=== PATIENT | female | born 1985 | race Caucasian/White ===

== ENCOUNTER 2020-12-26 19:44 | Emergency (ER) | payer BC ==
[2020-12-26] MEDS ORDERED: Sodium Chloride 0.9% 1,000 ML IV ONE (20:24)
[2020-12-26] MEDS ORDERED: methylPREDNISolone Sodium Succinate 125 MG/2 ML SDV IVPUSH ONE (20:33)
[2020-12-26] MEDS ORDERED: methylPREDNISolone Sodium Succinate 125 MG/2 ML SDV ONE (20:34)
--- NOTE | 2020-12-26 20:38 | EDM.PDOC ---
<Tim Henry - Last Filed: 12/26/20 22:50> ED HPI GENERAL MEDICAL PROBLEM - General Chief Complaint: Respiratory Problem Stated Complaint: DIFFICULTY BREATHING Time Seen by Provider: 12/26/20 19:54 - History of Present Illness INITIAL COMMENTS - FREE TEXT/NARRATIVE: 10:50 PM: Patient was reevaluated by me. Patient reports that she does feel much better after receiving the neb treatment here in the ED. Patient's Covid test is negative. Patient's lactic acid level is less than 2. Patient's D- dimer test is negative. Patient's chest x-ray does show a small pneumonia in the right lower lobe which we will start her on Zithromax for work. Patient also get started on outpatient prednisone and will be instructed to follow-up with her doctor in the next 2 to 3 days. Patient reports that she does have a albuterol MDI in her purse and does not need a prescription for that. Patient is ambulating in the ED with stable gait and without any further shortness of breath. Patient's pulse ox is 95% on room air. Reassessment at the time of disposition demonstrates that the patient is in no acute distress. The patient has remained stable throughout the entire ED visit and is without objective evidence for acute process requiring urgent intervention or hospitalization. The patient is stable for discharge, counseling is provided as documented above, discussed symptomatic treatment and specific c onditions for return. I have spoken with the patient/caregiver and discussed todays findings, in addition to providing specific details for the plan of care. Questions are answered and there is agreement with the plan. - Related Data Allergies Allergy/AdvReac Type Severity Reaction Status Date / Time No Known Allergies Allergy Verified 12/26/20 19:59 Home Meds: Home Meds oxyCODONE HCl/Acetaminophen [Percocet 5-325 mg Tablet] 08/20/14 [History] Albuterol Sulfate [Proair Hfa] 8.5 gm IH Q4HR PRN #1 [id number].[id number].[id number] 03/11/17 [Rx] Levothyroxine [Synthroid] 100 mcg PO ACBREAKFAST 03/11/17 [History] Pnv No.95/Ferrous Fum/Folic AC [ Vitamins Tablet] 1 tab PO DAILY 10/19/17 [History] valACYclovir HCl [Valtrex] 500 mg PO DAILY 03/16/18 [History] Azithromycin [Zithromax] 250 mg PO DAILY #4 tablet 12/26/20 [Rx] predniSONE [Prednisone] 50 mg PO DAILY #5 tablet 12/26/20 [Rx] ED ROS GENERAL - Review of Systems Review Of Systems: See Below ED EXAM, GENERAL - Physical Exam Exam: See Below Departure - Departure Time of Disposition: 22:51 Disposition: Home, Self-Care 01 Condition: Good Clinical Impression: Pneumonia Qualifiers: Pneumonia type: due to unspecified organism Laterality: right Lung location: lower lobe of lung Qualified Code(s): J18.9 - Pneumonia, unspecified organism - Discharge Information Prescriptions: predniSONE [Prednisone] 50 mg PO DAILY #5 tablet Azithromycin [Zithromax] 250 mg PO DAILY #4 tablet Instructions: Asthma, Adult, Shortness of Breath, Adult, [id number], Community-Acquired Pneumonia, Adult Referrals: Erum Escobedo CAREER PLACEMENT SPECIALIST [Primary Care Provider] - Forms: ED Department Discharge Additional Instructions: You were seen and evaluated in the ER today secondary to signs and symptoms consistent with pneumonia. Your Covid test was negative. The test that we use to detect blood clots in your lungs were also negative. Your sepsis test was negative as well. Your chest x-ray did show that you have a early pneumonia in the right side of your lung which we will start you on some antibiotics. You will also be given a prescription for prednisone to take to help the inflammation in your lungs from the pneumonia. Please make an appointment to see your doctor in the next 2 to 3 days for reevaluation. The following information is given to patients seen in the emergency department who are being discharged to home. This information is to outline your options for follow-up care. We provide all patients seen in our emergency department with a follow-up referral. The need for follow-up, as well as the timing and circumstances, are variable depending upon the specifics of your emergency department visit. If you don't have a primary care physician on staff, we will provide you with a referral. We always advise you to contact your personal physician following an emergency department visit to inform them of the circumstance of the visit and for follow-up with them and/or the need for any referrals to a consulting specialist. The emergency department will also refer you to a specialist when appropriate. This referral assures that you have the opportunity for follow-up care with a specialist. All of these measure are taken in an effort to provide you with optimal care, which includes your follow-up. Under all circumstances we always encourage you to contact your private physician who remains a resource for coordinating your care. When calling for follow-up care, please make the office aware that this follow-up is from your recent emergency room visit. If for any reason you are refused follow-up, please contact the [facility] Emergency Department at and asked to speak to the emergency department charge nurse. [facility] - Primary [facility] [address] [place] [id number] [address] [address] <Agueda Ji E - Last Filed: 12/28/20 10:10> ED HPI GENERAL MEDICAL PROBLEM - General Source of Information: Reports: Patient History Limitations: Reports: No Limitations - History of Present Illness INITIAL COMMENTS - FREE TEXT/NARRATIVE: HISTORY AND PHYSICAL: History of present illness: Patient is a 35-year-old female who presents to the emergency room with complaints of shortness of breath, cough, fever and body aches. She states over the past few days she has had a runny nose with green mucus. Her daughter has had similar symptoms including cough. This morning she had woke up with a productive cough and temperature of 99-100F. She states she is increasingly feeling unwell, tried using her inhaler without relief. She has had mild nausea, generalized backache with bilateral flank pain. Patient states she does have a history of asthma and recurrent bronchitis. Patient denies any headache, change in vision, syncope or near syncope. Denies any chest pain, hemoptysis, abdominal pain, vomiting, diarrhea, constipation or dysuria. Has not noted any blood in urine or stool. She states she has an IUD and no concern for . She had previously been eating and drinking appropriately. Review of systems: As per history of present illness and below otherwise all systems reviewed and negative. Past medical history: As per history of present illness and as reviewed below otherwise noncontributory. Surgical history: As per history of present illness and as reviewed below otherwise noncontributory. Social history: See social history for further information Family history: As per history of present illness and as reviewed below otherwise noncontributory. Physical exam: General: Well developed and well nourished 35-year-old female. Alert and orientated x 3. Nontoxic in appearance and in no acute distress. Vital signs are stable and have been reviewed by me. Nursing notes were reviewed. HEENT: Atraumatic, normocephalic, pupils equal and reactive bilaterally, negative for conjunctival pallor or scleral icterus, mucous membranes moist, TMs normal bilaterally, throat clear, neck supple, nontender, trachea midline. No drooling or trismus noted. No meningeal signs. No hot potato voice noted. Lungs: Poor air exchange with fine expiratory wheezing bilaterally. No wheezes, rales, or rhonchi. Chest nontender. Normal work of breathing, no accessory muscles used. Loose productive cough noted. Heart: S1S2, tachycardia with regular rhythm without overt murmur, gallops, or rubs. No JVD. No peripheral edema Abdomen: Soft, nondistended, nontender. Normoactive bowel sounds. Negative for masses or costovertebral tenderness. Skin: Skin warm to touch with flushed cheeks. Intact, warm, dry. No lesions or rashes noted. Hematologic: No petechiae or purpra. Mucosa appropriate color and normal nail bed color and refill. Extremities: Atraumatic, moves all extremities per self without difficulty or deficits, negative for cords or calf pain. Neurovascular unremarkable. Neuro: Awake, alert, oriented. Cranial nerves II through XII unremarkable. Cerebellum unremarkable. Motor and sensory unremarkable throughout. Exam nonfocal. Psychiatric: Mood and affect are appropriate. Normal thought process. Answering questions appropriately. Notes: *This patient was seen and evaluated during the 2019 SARS-CoV-2 novel coronavirus pandemic period. Community viral transmission is ongoing at time of this encounter and the emergency department is operating under pandemic response procedures. Patient does have a slight leukocytosis. Chest x-ray shows mild patchy right infrahilar infiltrate, atelectasis versus pneumonia. Few labs still pending. Dr Henry will follow up on this, assume care, and disposition patient appropriately. Diagnostics: CBC, CMP, UA, urine , D-dimer, EKG, chest x-ray, COVID-19 Therapeutics: IV fluid, Solu-Medrol Definitive disposition and diagnosis as appropriate pending reevaluation and review of above. lower back Pain Score (Numeric/FACES): 7 Past Medical History - Past Health History Medical/Surgical History: Denies Medical/Surgical History HEENT History: Reports: None Other HEENT History: glasses Cardiovascular History: Reports: None Respiratory History: Reports: Asthma, Bronchitis, Recurrent Other Respiratory History: early onset of COPD Gastrointestinal History: Reports: GERD, Other (See Below) Other Gastrointestinal History: Reflux in the past Genitourinary History: Reports: None, Retention, Urinary, STD BUSINESS OBJECTS DEVELOPER History: Reports: Other (See Below), Polycystic Ovaries, Other BUSINESS OBJECTS DEVELOPER History: IUFD, cerclage 2018. Musculoskeletal History: Reports: Back Pain, Chronic, Fracture Other Musculoskeletal History: hx fx wrist Neurological History: Reports: Migraines Psychiatric History: Reports: Anxiety, Depression Endocrine/Metabolic History: Reports: Hypothyroidism, Obesity/BMI 30+ Hematologic History: Reports: None Immunologic History: Reports: None Oncologic (Cancer) History: Reports: None Dermatologic History: Reports: Other (See Below) Other Dermatologic History: Inflamed sebaceous cyst. - Infectious Disease History Infectious Disease History: Reports: Herpes, Human Papilloma Virus (HPV), Other (See Below) Other Infectious Disease History: Genital herpes. - Past Surgical History Head Surgeries/Procedures: Reports: None HEENT Surgical History: Reports: Oral Surgery Female Surgical History: Reports: Breast Biopsy Musculoskeletal Surgical History: Reports: Shoulder Surgery Social & Family History - Family History Family Medical History: No Pertinent Family History - Caffeine Use Caffeine Use: Reports: None - Recreational Drug Use Recreational Drug Use: No ED ROS GENERAL - Review of Systems Review Of Systems: Comprehensive ROS is negative, except as noted in HPI. Course - Vital Signs Last Recorded V/S: Last Vital Signs Temp 99.9 F 12/26/20 20:00 Pulse 106 H 12/26/20 21:48 Resp 20 12/26/20 21:48 BP 136/90 12/26/20 21:48 Pulse Ox 98 12/26/20 21:48 - Orders/Labs/Meds Labs: Laboratory Tests 12/26/20 12/26/20 12/26/20 Range/Units 20:16 20:22 20:22 WBC 11.12 H (4.0-11.0) K/uL RBC 4.15 L (4.30-5.90) M/uL Hgb 13.0 (12.0-16.0) g/dL Hct 38.0 (36.0-46.0) % MCV 91.6 (80.0-98.0) fL MCH 31.3 (27.0-32.0) pg MCHC 34.2 (31.0-37.0) g/dL RDW Std Deviation 43.5 (28.0-62.0) fl RDW Coeff of Delia 13 (11.0-15.0) % Plt Count 338 (150-400) K/uL MPV 10.20 (7.40-12.00) fL Neut % (Auto) 68.7 (48.0-80.0) % Lymph % (Auto) 20.9 (16.0-40.0) % Grady % (Auto) 6.9 (0.0-15.0) % Eos % (Auto) 3.1 (0.0-7.0) % Baso % (Auto) 0.4 (0.0-1.5) % Neut # (Auto) 7.6 H (1.4-5.7) K/uL Lymph # (Auto) 2.3 (0.6-2.4) K/uL Grady # (Auto) 0.8 (0.0-0.8) K/uL Eos # (Auto) 0.4 (0.0-0.7) K/uL Baso # (Auto) 0.0 (0.0-0.1) K/uL Nucleated RBC % 0.0 /100WBC Nucleated RBCs # 0 K/uL D-Dimer, Quantitative (0.0-0.50) mg/L FEU Sodium 140 (136-145) mmol/L Potassium 4.2 (3.5-5.1) mmol/L Chloride 103 (98-107) mmol/L Carbon Dioxide 29.0 (21.0-32.0) mmol/L BUN 9 (7.0-18.0) mg/dL Creatinine 1.1 H (0.6-1.0) mg/dL Est Cr Clr Drug Dosing 68.10 mL/min Estimated GFR (MDRD) 57.2 ml/min Glucose 119 H (74-106) mg/dL Lactic Acid (0.4-2.0) mmol/L Calcium 9.3 (8.5-10.1) mg/dL Total Bilirubin 0.3 (0.2-1.0) mg/dL AST 24 (15-37) IU/L ALT 39 (14-63) IU/L Alkaline Phosphatase 88 (46-116) U/L Troponin I (0.000-0.056) ng/mL Total Protein 8.0 (6.4-8.2) g/dL Albumin 3.8 (3.4-5.0) g/dL Globulin 4.2 H (2.6-4.0) g/dL Albumin/Globulin Ratio 0.9 (0.9-1.6) Urine Color Urine Appearance Urine pH (5.0-8.0) Ur Specific [place] (1.001-1.035) Urine Protein (NEGATIVE) mg/dL Urine Glucose (UA) (NEGATIVE) mg/dL Urine Ketones (NEGATIVE) mg/dL Urine Occult Blood (NEGATIVE) Urine Nitrite (NEGATIVE) Urine Bilirubin (NEGATIVE) Urine Urobilinogen (<2.0) EU/dL Ur Leukocyte Esterase (NEGATIVE) Urine RBC (0-2/HPF) Urine WBC (0-5/HPF) Ur Epithelial Cells (NONE-FEW) Urine Bacteria (NEGATIVE) Urine HCG, Qual (NEGATIVE) SARS-CoV-2 RNA (REJI) NEGATIVE (NEGATIVE) 12/26/20 12/26/20 12/26/20 Range/Units 20:22 20:22 20:32 WBC (4.0-11.0) K/uL RBC (4.30-5.90) M/uL Hgb (12.0-16.0) g/dL Hct (36.0-46.0) % MCV (80.0-98.0) fL MCH (27.0-32.0) pg MCHC (31.0-37.0) g/dL RDW Std Deviation (28.0-62.0) fl RDW Coeff of Delia (11.0-15.0) % Plt Count (150-400) K/uL MPV (7.40-12.00) fL Neut % (Auto) (48.0-80.0) % Lymph % (Auto) (16.0-40.0) % Grady % (Auto) (0.0-15.0) % Eos % (Auto) (0.0-7.0) % Baso % (Auto) (0.0-1.5) % Neut # (Auto) (1.4-5.7) K/uL Lymph # (Auto) (0.6-2.4) K/uL Grady # (Auto) (0.0-0.8) K/uL Eos # (Auto) (0.0-0.7) K/uL Baso # (Auto) (0.0-0.1) K/uL Nucleated RBC % /100WBC Nucleated RBCs # K/uL D-Dimer, Quantitative 0.27 (0.0-0.50) mg/L FEU Sodium (136-145) mmol/L Potassium (3.5-5.1) mmol/L Chloride (98-107) mmol/L Carbon Dioxide (21.0-32.0) mmol/L BUN (7.0-18.0) mg/dL Creatinine (0.6-1.0) mg/dL Est Cr Clr Drug Dosing mL/min Estimated GFR (MDRD) ml/min Glucose (74-106) mg/dL Lactic Acid 1.2 (0.4-2.0) mmol/L Calcium (8.5-10.1) mg/dL Total Bilirubin (0.2-1.0) mg/dL AST (15-37) IU/L ALT (14-63) IU/L Alkaline Phosphatase (46-116) U/L Troponin I < 0.050 (0.000-0.056) ng/mL Total Protein (6.4-8.2) g/dL Albumin (3.4-5.0) g/dL Globulin (2.6-4.0) g/dL Albumin/Globulin Ratio (0.9-1.6) Urine Color Urine Appearance Urine pH (5.0-8.0) Ur Specific [place] (1.001-1.035) Urine Protein (NEGATIVE) mg/dL Urine Glucose (UA) (NEGATIVE) mg/dL Urine Ketones (NEGATIVE) mg/dL Urine Occult Blood (NEGATIVE) Urine Nitrite (NEGATIVE) Urine Bilirubin (NEGATIVE) Urine Urobilinogen (<2.0) EU/dL Ur Leukocyte Esterase (NEGATIVE) Urine RBC (0-2/HPF) Urine WBC (0-5/HPF) Ur Epithelial Cells (NONE-FEW) Urine Bacteria (NEGATIVE) Urine HCG, Qual (NEGATIVE) SARS-CoV-2 RNA (REJI) (NEGATIVE) 12/26/20 12/26/20 Range/Units 21:40 21:40 WBC (4.0-11.0) K/uL RBC (4.30-5.90) M/uL Hgb (12.0-16.0) g/dL Hct (36.0-46.0) % MCV (80.0-98.0) fL MCH (27.0-32.0) pg MCHC (31.0-37.0) g/dL RDW Std Deviation (28.0-62.0) fl RDW Coeff of Delia (11.0-15.0) % Plt Count (150-400) K/uL MPV (7.40-12.00) fL Neut % (Auto) (48.0-80.0) % Lymph % (Auto) (16.0-40.0) % Grady % (Auto) (0.0-15.0) % Eos % (Auto) (0.0-7.0) % Baso % (Auto) (0.0-1.5) % Neut # (Auto) (1.4-5.7) K/uL Lymph # (Auto) (0.6-2.4) K/uL Grady # (Auto) (0.0-0.8) K/uL Eos # (Auto) (0.0-0.7) K/uL Baso # (Auto) (0.0-0.1) K/uL Nucleated RBC % /100WBC Nucleated RBCs # K/uL D-Dimer, Quantitative (0.0-0.50) mg/L FEU Sodium (136-145) mmol/L Potassium (3.5-5.1) mmol/L Chloride (98-107) mmol/L Carbon Dioxide (21.0-32.0) mmol/L BUN (7.0-18.0) mg/dL Creatinine (0.6-1.0) mg/dL Est Cr Clr Drug Dosing mL/min Estimated GFR (MDRD) ml/min Glucose (74-106) mg/dL Lactic Acid (0.4-2.0) mmol/L Calcium (8.5-10.1) mg/dL Total Bilirubin (0.2-1.0) mg/dL AST (15-37) IU/L ALT (14-63) IU/L Alkaline Phosphatase (46-116) U/L Troponin I (0.000-0.056) ng/mL Total Protein (6.4-8.2) g/dL Albumin (3.4-5.0) g/dL Globulin (2.6-4.0) g/dL Albumin/Globulin Ratio (0.9-1.6) Urine Color YELLOW Urine Appearance CLEAR Urine pH 7.5 (5.0-8.0) Ur Specific [place] 1.015 (1.001-1.035) Urine Protein NEGATIVE (NEGATIVE) mg/dL Urine Glucose (UA) NEGATIVE (NEGATIVE) mg/dL Urine Ketones NEGATIVE (NEGATIVE) mg/dL Urine Occult Blood TRACE-INTACT H (NEGATIVE) Urine Nitrite NEGATIVE (NEGATIVE) Urine Bilirubin NEGATIVE (NEGATIVE) Urine Urobilinogen 0.2 (<2.0) EU/dL Ur Leukocyte Esterase NEGATIVE (NEGATIVE) Urine RBC 0-2 (0-2/HPF) Urine WBC 0-1 (0-5/HPF) Ur Epithelial Cells FEW (NONE-FEW) Urine Bacteria FEW (NEGATIVE) Urine HCG, Qual NEGATIVE (NEGATIVE) SARS-CoV-2 RNA (REJI) (NEGATIVE) Meds: Medications Discontinued Medications Generic Name Dose Route Start Last Admin Trade Name Freq PRN Reason Stop Dose Admin Albuterol/Ipratropium 3 ml 12/26/20 22:39 12/26/20 22:47 Albuterol/Ipratropium 3.0-0.5 Mg/3 Ml Neb Soln NEB 12/26/20 22:40 3 ml ONETIME ONE Administration Azithromycin 500 mg 12/26/20 22:54 Azithromycin 250 Mg Tab PO 12/26/20 22:55 Q24H ONE Sodium Chloride 1,000 mls @ 999 mls/hr 12/26/20 20:24 12/26/20 20:37 Normal Saline IV 12/26/20 21:24 999 mls/hr STAT ONE Administration Methylprednisolone Sodium Succinate 125 mg 12/26/20 20:33 12/26/20 20:38 Methylprednisolone Sodium Succinate 125 Mg/2 Ml Sdv IVPUSH 12/26/20 20:34 125 mg ONETIME ONE Administration Methylprednisolone Sodium Succinate Confirm 12/26/20 20:34 12/26/20 20:35 Methylprednisolone Sodium Succinate 125 Mg/2 Ml Sdv Administered 12/26/20 20:35 Not Given Dose 125 mg .ROUTE .STK-MED ONE Sepsis Event Note (ED) - Evaluation Sepsis Screening Result: No Definite Risk
[2020-12-26 20:48] LABS: POTASSIUM,K 4.2 mmol/L (3.5-5.1)
--- NOTE | 2020-12-26 20:51 | CR ---
HISTORY: Shortness of breath. COMPARISON: None available FINDINGS: A portable erect AP view of the chest was obtained at 20 24 hours. There is mild patchy right infrahilar infiltrate. This could be atelectasis or pneumonia. The rest of the chest is clear. The heart is normal in size. The mediastinum is normal in appearance. There are changes of resection of the right distal clavicle with prominent inferior subluxation of the acromion. A metallic strap is seen along the superior distal right clavicle. IMPRESSION: Mild patchy right infrahilar infiltrate, atelectasis versus pneumonia. Dictated by Kurtis Bradley MD @ 12/26/2020 8:51:[address] Kurtis Bradley @ Dec 26 2020 8:51PM
--- NOTE | 2020-12-26 21:21 | PCM.EKG ---
#1 Interpretation EKG Interpretation Comments: EKG: As interpreted by ER physician: Elaine: Nonspecific ST-T wave abnormalities Normal axis No evidence of ST elevation SD Normal sinus rhythm heart rate of 95
[2020-12-26 21:50] VITALS: BP 136/90; PULSE 106
[2020-12-26] MEDS ORDERED: Albuterol/Ipratropium 3.0-0.5 MG/3 ML Neb Soln NEB ONE (22:39)
[2020-12-26] MEDS ORDERED: Azithromycin 250 MG Tab PO ONE (22:54)
== END 2020-12-26 23:00 | disposition home or self-care (01) ==
LOC: MW.ED 19:44
DX: J18.9 Pneumonia, unspecified organism (principal); Z20.822 Contact with and (suspected) exposure to COVID-19
CPT/HCPCS: 36415; 71045; 80053; 81001; 81025; 83605; 84484; 85025; 85379; 87040; 87635; 93005; 96374; 99285; J2930; J7030; J7620-GY; U0002

== ENCOUNTER 2022-01-14 02:25 | Emergency (ER) | payer BC ==
[2022-01-14] MEDS ORDERED: Dexamethasone 10 MG/ML SDV IM STA (02:40)
[2022-01-14 03:06] VITALS: BP 137/81; PULSE 92
== END 2022-01-14 03:07 | disposition home or self-care (01) ==
LOC: MW.ED 02:25
DX: H66.92 Otitis media, unspecified, left ear (principal); J44.9 Chronic obstructive pulmonary disease, unspecified; K21.9 Gastro-esophageal reflux disease without esophagitis; E03.9 Hypothyroidism, unspecified; E66.9 Obesity, unspecified; Z68.42 Body mass index [BMI] 45.0-49.9, adult
CPT/HCPCS: 96372; 99282; J1100

== ENCOUNTER 2024-01-19 15:01 | Emergency (ER) | payer BC ==
[2024-01-19] MEDS: Acetaminophen 500 MG Tab PO ONE (15:51)
[2024-01-19] MEDS: Sodium Chloride 0.9% 1,000 ML IV ONE ×2 (15:51→17:20)
[2024-01-19] MEDS: Ketorolac 30 MG/ML SDV IVPUSH ONE (15:52)
[2024-01-19] MEDS: Sodium Chloride 0.9% 10 ML Syringe FLUSH PRN (15:52)
[2024-01-19] MEDS: Metoclopramide 10 MG/2 ML SDV IVPUSH ONE (15:52)
[2024-01-19] MEDS: Sodium Chloride 0.9% 2.5 ML Syringe FLUSH PRN (15:52)
[2024-01-19] MEDS: diphenhydrAMINE 50 MG/ML SDV IVPUSH ONE (15:52)
[2024-01-19 15:56] LABS: BASOPHILS ABSOLUTE AUTO 0.04 K/uL (0.00-0.20); BASOPHILS PERCENT AUTO 0.3 % (0.0-1.0); HEMATOCRIT 36.3 % (37.0-47.0); HEMOGLOBIN 12.9 g/dL (12.0-16.0); IMMATURE GRAN ABSOLUTE AUTO 0.06 K/uL (0.00-0.05); IMMATURE GRAN PERCENT AUTO 0.5 % (0.0-0.4); LYMPHOCYTES ABSOLUTE AUTO 0.72 K/uL (1.00-4.80); LYMPHOCYTES PERCENT AUTO 5.6 % (24.0-44.0); MEAN CORPUSCULAR HEMOGLOBIN 31.2 pg (28.0-32.0); MEAN CORPUSCULAR HGB CONC 35.5 g/dL (32.0-36.0); MEAN CORPUSCULAR VOLUME 87.7 fL (83.0-99.0); MEAN PLATELET VOLUME 10.1 fL (9.4-12.3); MONOCYTES PERCENT AUTO 6.2 % (0.0-8.0); NEUTROPHILS ABSOLUTE AUTO 11.33 K/uL (1.80-7.70); NEUTROPHILS PERCENT AUTO 87.4 % (41.0-71.0); PLATELET COUNT,PLT 235 K/uL (150-400); RED BLOOD CELL COUNT 4.14 M/uL (4.10-5.30); WHITE BLOOD CELL COUNT,WBC 12.95 K/uL (3.9-11.3)
[2024-01-19 16:03] LABS: APPEARANCE,URINE CLEAR; BILIRUBIN,URINE NEGATIVE (NEGATIVE); COLOR,URINE YELLOW; GLUCOSE,URINE 500 mg/dL (NEGATIVE); KETONES,URINE NEGATIVE (NEGATIVE); LEUKOCYTE ESTERASE,URINE NEGATIVE (NEGATIVE); NITRITE,URINE NEGATIVE (NEGATIVE); OCCULT BLOOD,URINE NEGATIVE (NEGATIVE); PROTEIN,URINE NEGATIVE (NEGATIVE); UROBILINOGEN,URINE 0.2 EU/dL (<2.0)
[2024-01-19 16:25] LABS: ALBUMIN 3.4 g/dL (3.4-5.0); BILIRUBIN TOTAL 0.8 mg/dL (0.2-1.0); CALCIUM 8.9 mg/dL (8.5-10.1); CARBON DIOXIDE,CO2 22.9 mmol/L (21.0-32.0); CREATININE 1.1 mg/dL (0.6-1.0); EST CRCL DRUG DOSING (CG) 71.32 mL/min; POTASSIUM,K 3.6 mmol/L (3.5-5.1); PROTEIN TOTAL,TP 6.7 g/dL (6.4-8.2); TSH ULTRASENSITIVE 2.11 uIU/mL (0.36-3.74)
[2024-01-19 16:40] LABS: CORONAVIRUS COVID-19 NAA NEGATIVE (NEGATIVE); INFLUENZA A NAA NEGATIVE (NEGATIVE); INFLUENZA B NAA NEGATIVE (NEGATIVE); RESPIRATORY SYNCYTIAL VIR NAA NEGATIVE (NEGATIVE)
[2024-01-19 18:27] VITALS: BP 91/56; PULSE 87
== END 2024-01-19 18:22 | disposition home or self-care (01) ==
LOC: MW.ED 15:01
DX: J32.9 Chronic sinusitis, unspecified (principal); R00.0 Tachycardia, unspecified; E03.9 Hypothyroidism, unspecified; J45.909 Unspecified asthma, uncomplicated; K21.9 Gastro-esophageal reflux disease without esophagitis; E66.9 Obesity, unspecified; Z75.8 Other problems related to medical facilities and other health care; Z79.899 Other long term (current) drug therapy; Z68.25 Body mass index [BMI] 25.0-25.9, adult
CPT/HCPCS: 0241U; 36415; 80053; 81003; 83605; 84443; 84703; 85025; 93005; 96361; 96374; 96375; 99285; A9270; J1200; J1885; J2765; J3490; J7030; 93010; 99284